=== PATIENT | female | born 1980 | race African-American/Black ===

== ENCOUNTER 2016-05-02 09:53 | Emergency (ER) | payer OTHER ==
[2016-05-02 09:57] VITALS: BP 141/88; PULSE 87; TEMP 98.1; BMI 31.1
--- NOTE | 2016-05-02 11:37 | PDOC ---
History of Present Illness - General Chief Complaint: Diarrhea Stated Complaint: DIARHHEA, ABD PAIN Time Seen by Provider: 05/02/16 10:31 History Source: Patient Exam Limitations: No Limitations - History of Present Illness Travel History: No Initial Comments: 05/02/16 11:32 35 yr female states she had abd cramping with loose stool last week, last episode was tuesday night. Pt states no cramping now and had a solid BM this morning. no diarrhea or vomiting no fever or chills. Pt denies recent foreign travel or sick contacts. Timing/Duration: reports: resolved prior to arrival Quality: reports: mild, cramping Pain Radiation: reports: no radiation Activities at Onset: reports: none Past History - Past Medical History Allergies/Adverse Reactions: Allergies Allergy/AdvReac Type Severity Reaction Status Date / Time Penicillins Allergy Unknown Verified 05/02/16 09:57 Home Medications: Ambulatory Orders Citalopram Hydrobromide [Celexa -] 10 mg PO DAILY 10/02/13 Quetiapine Fumarate [Seroquel -] 25 mg PO HS 10/02/13 Amlodipine Besylate 5 mg PO ASDIR 05/02/16 Aspirin [ASA -] 81 mg PO DAILY 05/02/16 Atorvastatin Ca [Lipitor] 10 mg PO HS 05/02/16 HTN: Yes Hypercholesterolemia: Yes Other medical history: "LUNG DISEASE" - Immunization History Immunization Up to Date: No - Psycho/Social/Smoking Cessation Hx Anxiety: No Suicidal Ideation: No Smoking Status: Yes Smoking History: Current every day smoker Have you smoked in the past 12 months: Yes Number of Cigarettes Smoked Daily: 20 Information on smoking cessation initiated: No Hx Alcohol Use: No Drug/Substance Use Hx: No Substance Use Type: None Abd/GI Specific PMHX - Complaint Specific PMHX Colitis: No Diverticulitis: No Gall Bladder Disease: No GERD: No Hepatitis: No Irritable Bowel Synd (IBS): No Pancreatitis: No GI Ulcer Disease: No Review of Systems - Review of Systems Able to Perform ROS?: Yes Is the patient limited [place] Citizen proficient: No Constitutional: No: Symptoms Reported HEENTM: No: Symptoms Reported Respiratory: No: Symptoms reported Cardiac (ROS): No: Symptoms Reported ABD/GI: Yes: Symptoms Reported, See HPI : No: Symptoms Reported Musculoskeletal: No: Symptoms Reported Integumentary: No: Symptoms Reported *Physical Exam - Vital Signs Last Vital Signs Temp Pulse Resp BP Pulse Ox 98.1 F 87 16 141/88 98 05/02/16 09:54 05/02/16 09:54 05/02/16 09:54 05/02/16 09:54 05/02/16 09:54 - Physical Exam General Appearance: Yes: Nourished, Appropriately Dressed HEENT: positive: EOMI, ROC, Normal ENT Inspection, TMs Normal, Pharynx Normal Neck: positive: Supple. negative: Tender Respiratory/Chest: positive: Lungs Clear, Normal Breath Sounds. negative: Chest Tender Cardiovascular: positive: Regular Rhythm, Regular Rate Gastrointestinal/Abdominal: positive: Normal Bowel Sounds, Soft. negative: Tender, Increased Bowel Sounds Musculoskeletal: positive: Normal Inspection Extremity: positive: Normal Capillary Refill, Normal Inspection, Normal Range of Motion Integumentary: positive: Normal Color, Dry, Warm Neurologic: positive: Fully Oriented, Alert, Normal Mood/Affect, Normal Response , Motor Strength 5/5 Medical Decision Making - Medical Decision Making 05/02/16 11:34 cc: cramping with diarrhea that has resolved no fever, no vomiting, well appearing will check urine for UTI *DC/Admit/Observation/Transfer Diagnosis at time of Disposition: Diarrhea Qualifiers: Diarrhea type: unspecified type Qualified Code(s): R19.7 - Diarrhea, unspecified - Discharge Dispostion Disposition: HOME Condition at time of disposition: Good - Referrals Referrals: Ana Acosta MD [Primary Care Provider] - - Patient Instructions Additional Instructions: drink pleanty of water eat rice, pasta plain, banannas, toast, apples avoid spicy food, cut back on dairy follow with your primary care doctor for follow up this week if any worsening symptoms
[2016-05-02 11:56] LABS: URINE APPEARANCE CLEAR; URINE BILIRUBIN NEGATIVE (NEGATIVE); URINE BLOOD NEGATIVE (NEGATIVE); URINE COLOR YELLOW; URINE GLUCOSE (UA) NEGATIVE (NEGATIVE); URINE KETONE NEGATIVE (NEGATIVE); URINE LEUK ESTERASE NEGATIVE (NEGATIVE); URINE NITRITE NEGATIVE (NEGATIVE); URINE PROTEIN NEGATIVE (NEGATIVE); URINE UROBILINOGEN NEGATIVE E.U./dl (0.2-1.0)
== END 2016-05-02 12:31 | disposition home or self-care (01) ==
LOC: JERFT 09:53
DX: R19.7 Diarrhea, unspecified (principal); I10 Essential (primary) hypertension; E78.00 Pure hypercholesterolemia, unspecified; F17.210 Nicotine dependence, cigarettes, uncomplicated
CPT/HCPCS: 81003; 84703; 99281-25

== ENCOUNTER 2020-07-31 12:37 | Emergency (ER) | payer OTHER ==
[2020-07-31 12:51] VITALS: BP 149/99; PULSE 88; TEMP 98.6; BMI 30.2
[2020-07-31] MEDS ORDERED: LIDOCAINE 5% TOPICAL PATCH TP ONE (13:32)
[2020-07-31] MEDS ORDERED: METHOCARBAMOL 500 MG TABLET PO ONE (13:32)
[2020-07-31] MEDS ORDERED: LIDOCAINE 5% TOPICAL PATCH ONE (13:36)
== END 2020-07-31 14:03 | disposition home or self-care (01) ==
LOC: JER 12:37 → JERFT 12:37
DX: M54.42 Lumbago with sciatica, left side (principal)
CPT/HCPCS: 99283-25

== ENCOUNTER 2021-10-11 11:15 | Inpatient (IN) | payer OTHER ==
[2021-10-11 11:20] VITALS: BMI 35.4
[2021-10-11 12:59] LABS: EOS % 5.5 % (0-4.5); HEMATOCRIT 23.6 % (32.4-45.2); HEMOGLOBIN 7.1 GM/dL (10.7-15.3); LYMPH % 40.8 % (8-40); MCH 21.4 pg (25.7-33.7); MEAN CELL VOLUME 71.2 fl (80-96); MEAN PLT VOLUME 7.7 fl (7.5-11.1); MONO % 6.3 % (3.8-10.2); NEUT % 46.4 % (42.8-82.8); PLATELET COUNT 272 10^3/uL (134-434); RBC 3.32 M/mm3 (3.60-5.2); RDW 18.9 % (11.6-15.6); WHITE BLOOD COUNT 4.6 K/mm3 (4.0-10.0)
[2021-10-11 13:03] LABS: PH,URINE 5.5 (5.0-8.0); URINE APPEARANCE CLEAR; URINE BILIRUBIN NEGATIVE (NEGATIVE); URINE COLOR YELLOW; URINE GLUCOSE (UA) NEGATIVE (NEGATIVE); URINE KETONE TRACE (NEGATIVE); URINE LEUK ESTERASE NEGATIVE (NEGATIVE); URINE NITRITE NEGATIVE (NEGATIVE); URINE PROTEIN TRACE (NEGATIVE); URINE UROBILINOGEN 0.2 mg/dL (0.2-1.0)
[2021-10-11 13:05] LABS: HCG,QUALITATIVE URINE Negative
[2021-10-11 13:10] LABS: CALCIUM 8.4 mg/dL (8.5-10.1)
[2021-10-11 13:11] LABS: ALBUMIN 3.2 g/dl (3.4-5.0); BLOOD UREA NITROGEN 9.3 mg/dL (7-18); MAGNESIUM 1.8 mg/dL (1.8-2.4)
[2021-10-11 13:14] LABS: CREATININE 0.7 mg/dL (0.55-1.3)
[2021-10-11 13:16] LABS: BILIRUBIN,TOTAL 0.3 mg/dL (0.2-1); TOT PROT 7.1 g/dl (6.4-8.2)
[2021-10-11] MEDS ORDERED: HEPARIN NA (PORCINE) 5,000 UNITS/ML 1ML VIAL IVPUSH PRN ×2 (13:41)
[2021-10-11] MEDS ORDERED: HEPARIN - 25,000 UNIT in SODIUM CHLORIDE 495 ML IV SCH (13:45)
[2021-10-11 13:54] LABS: ANISOCYTOSIS 2+; MACROCYTOSIS 0
[2021-10-11 14:16] LABS: N-TERMINAL BNP 167.6 pg/ml (5-125)
[2021-10-11 14:23] LABS: INR 1.03 (0.83-1.09); PROTHROMBIN TIME (PATIENT) 11.9 SEC (9.7-13.0)
[2021-10-11 14:25] LABS: ACTIVATED PTT 24.9 SECONDS (25.2-36.5)
[2021-10-11] MEDS ORDERED: ACETAMINOPHEN 325 MG TABLET (FP) PO PRN (15:28)
[2021-10-11 17:38] VITALS: RESP 16
[2021-10-11 22:11] LABS: INR 1.07 (0.83-1.09); PROTHROMBIN TIME (PATIENT) 12.3 SEC (9.7-13.0)
[2021-10-11 22:14] LABS: ACTIVATED PTT 32.9 SECONDS (25.2-36.5)
[2021-10-11] MEDS ORDERED: HEPARIN NA (PORCINE) 5,000 UNITS/ML 1ML VIAL ONE (22:42)
[2021-10-12 05:24] VITALS: BP 131/81; PULSE 79; TEMP 98.2
[2021-10-12 06:06] LABS: INR 1.09 (0.83-1.09); PROTHROMBIN TIME (PATIENT) 12.5 SEC (9.7-13.0)
[2021-10-12 06:09] LABS: ACTIVATED PTT 67.9 SECONDS (25.2-36.5)
[2021-10-12 07:25] LABS: BASO % 0.8 % (0-2.0); EOS % 4.7 % (0-4.5); HEMATOCRIT 24.5 % (32.4-45.2); HEMOGLOBIN 7.5 GM/dL (10.7-15.3); LYMPH % 38.8 % (8-40); MCH 22.6 pg (25.7-33.7); MCHC 30.8 g/dl (32.0-36.0); MEAN CELL VOLUME 73.4 fl (80-96); MEAN PLT VOLUME 8.4 fl (7.5-11.1); MONO % 6.4 % (3.8-10.2); NEUT % 49.3 % (42.8-82.8); PLATELET COUNT 260 10^3/uL (134-434); RBC 3.33 M/mm3 (3.60-5.2); RDW 20.2 % (11.6-15.6); WHITE BLOOD COUNT 5.9 K/mm3 (4.0-10.0)
[2021-10-12 07:44] LABS: MAGNESIUM 1.8 mg/dL (1.8-2.4)
[2021-10-12 07:45] LABS: ALBUMIN 2.9 g/dl (3.4-5.0); BLOOD UREA NITROGEN 14.1 mg/dL (7-18); CALCIUM 8.2 mg/dL (8.5-10.1)
[2021-10-12 07:48] LABS: CREATININE 0.6 mg/dL (0.55-1.3); PHOSPHOROUS 3.4 mg/dL (2.5-4.9)
[2021-10-12 07:49] LABS: TOT PROT 6.3 g/dl (6.4-8.2)
[2021-10-12 08:06] LABS: BILIRUBIN,TOTAL 1.8 mg/dL (0.2-1)
== END 2021-10-12 14:25 | disposition home or self-care (01) | DRG 134 ==
LOC: JER 11:15 → JERBED 14:25 → UNDODISIN 10-12 14:25
PROVIDERS: ADMIT Internal Medicine; ATTEND Internal Medicine
PROC: 30233N1 Transfusion of Nonautologous Red Blood Cells into Peripheral Vein, Percutaneous Approach (ICD-10-PCS; principal; 2021-10-11)
DX: I26.99 Other pulmonary embolism without acute cor pulmonale (principal); I82.431 Acute embolism and thrombosis of right popliteal vein; I10 Essential (primary) hypertension; E78.5 Hyperlipidemia, unspecified; D50.9 Iron deficiency anemia, unspecified; F17.200 Nicotine dependence, unspecified, uncomplicated; I26.94 Multiple subsegmental thrombotic pulmonary emboli without acute cor pulmonale
CPT/HCPCS: 36415; 36430; 71275-TC; 80048; 80053; 80061; 81003; 82272; 82550; 82728; 83540; 83550; 83735; 83880; 84100; 84484; 84703; 85025; 85610; 85730; 86850; 86900; 86901; 86922; 93005; 93010; 93306-TC; 93971-TC; 99283-25; C9803-CS; J1644; P9058; Q9967; U0003; U0005